=== PATIENT | female | born 1965 | race Caucasian/White ===

== ENCOUNTER 2016-11-06 16:14 | Emergency (ER) | payer SELFPAY ==
[~2016-11-06] VITALS: Ht 170.2 cm; Wt 70.4 kg
[~2016-11-06 16:14] MED LIST: CENTURY SENIOR1 EAC2 PO; FLEXERIL10 MG PO; KEFLEX500 MG PO; METFORMIN HCL500 MG PO; MOTRIN600 MG PO; NAPROSYN500 MG PO
[2016-11-06] MEDS ORDERED: LISINOPRIL10 MG PO (17:46)
[2016-11-06 18:07] LABS: ADD MIUA? YES; BILIRUBIN NEGATIVE; BLOOD NEGATIVE; COLOR YELLOW ((YELLOW)); GLUCOSE (STRIP) >=1000; KETONES NEGATIVE; LEUKOCYTES TRACE; NITRITE POSITIVE; PROTEIN (STRIP) NEGATIVE; SPECIFIC GRAVITY 1.007 (1.000-1.030); UROBILINOGEN 0.2 MG/DL (0.2-1.0)
[2016-11-06 18:15] LABS: HEMATOCRIT 41.3 % (36.0-46.0); MCH 29.7 PG (29.0-34.0); MCHC 33.7 G/DL (30.0-36.0); MCV 88.2 FL (83-99); MEAN PLAT.VOLUME 9.3 uM^3 (9.5-12.4); PLATELET COUNT 254 K/uL (156-360); RBC DIS.WIDTH-CV 12.8 % (11.8-14.6); RBC DIS.WIDTH-SD 40.8 % (39-53); RED BLOOD COUNT 4.68 M/uL (3.80-5.20); WHITE BLOOD COUNT 9.9 K/uL (4.1-10.2)
[2016-11-06 18:23] LABS: CHLORIDE 100 mEq/L (99-109); POTASSIUM 3.7 mEq/L (3.7-5.4); SODIUM 135 mEq/L (136-147)
[2016-11-06 18:25] LABS: GLUCOSE 259 mg/dL (70-99)
[2016-11-06 18:26] LABS: ANION GAP 15 MEQ/L (2-14)
[2016-11-06 18:29] LABS: GFR ESTIMATE (CALCULATED) 55 mL/min/
[2016-11-06 18:30] LABS: UREA NITROGEN (BUN) 12 mg/dL (9-23)
[2016-11-06 18:56] LABS: BACTERIA 2+; CASTS NONE SEEN /LPF; CRYSTALS NONE SEEN; EPITHELIAL CELLS 2+; MUCUS TRACE; RED BLOOD CELLS RARE /HPF (0-5)
[2016-11-06] MEDS ORDERED: MUCINEX D ER T1 EACH PO (19:48)
[2016-11-06] MEDS ORDERED: ANTIVERT25 MG PO (19:48)
[2016-11-06] MEDS ORDERED: FLONASE16 G1 BOTH NARES (19:52)
[2016-11-06] MEDS ORDERED: LEVAQUIN500 MG PO (19:52)
[2016-11-06 20:12] VITALS: BP 122/95
== END 2016-11-06 20:15 | disposition home or self-care (01) ==
LOC: EME 16:14
PROVIDERS: Physician Assistant
DX: J32.9 Chronic sinusitis, unspecified (principal); N39.0 Urinary tract infection, site not specified; H65.90 Unspecified nonsuppurative otitis media, unspecified ear; E11.65 Type 2 diabetes mellitus with hyperglycemia; Z79.84 Long term (current) use of oral hypoglycemic drugs
CPT/HCPCS: 80048; 81003; 85027; 87077; 87086; 87186; 99281; 99284

== ENCOUNTER 2017-07-13 02:35 | Inpatient (IN) | payer SELFPAY ==
[~2017-07-13] VITALS: Ht 170.2 cm; Wt 71.4 kg
[~2017-07-13 02:35] MED LIST changes: +ANTIVERT25 MG PO; +FLONASE16 G1 BOTH NARES; +LEVAQUIN500 MG PO; +LISINOPRIL10 MG PO; +MUCINEX D ER T1 EACH PO
[2017-07-13 05:09] LABS: ADD MIUA? YES; BILIRUBIN NEGATIVE; BLOOD NEGATIVE; COLOR YELLOW ((YELLOW)); GLUCOSE (STRIP) >=500; KETONES NEGATIVE; LEUKOCYTES MODERATE; NITRITE NEGATIVE; PROTEIN (STRIP) NEGATIVE; SPECIFIC GRAVITY 1.011 (1.000-1.030); UROBILINOGEN 0.2 MG/DL (0.2-1.0)
[2017-07-13 05:13] LABS: BACTERIA RARE /HPF; EPITHELIAL CELLS RARE /HPF; MUCUS NONE SEEN /LPF; RED BLOOD CELLS 0-5 /HPF (0-5); UCUL ADDED? YES; WHITE BLOOD CELLS TNTC /HPF (0-5)
[2017-07-13 05:40] LABS: CHLORIDE 105 mEq/L (99-109); POTASSIUM 3.3 mEq/L (3.7-5.4); SODIUM 139 mEq/L (136-147)
[2017-07-13 05:41] LABS: EOSINOPHIL (%) 0.7 % (0-5); EOSINOPHIL COUNT 0.1 K/uL (0-0.3); HEMATOCRIT 38.6 % (36.0-46.0); IMMATURE GRANULOCYTE (%) 0.6 % (0.0-0.7); IMMATURE GRANULOCYTE COUNT 0.1 K/uL; LYMPHOCYTE COUNT 1.7 K/uL (1.0-2.8); MCH 29.3 PG (29.0-34.0); MCHC 33.7 G/DL (30.0-36.0); MCV 87.1 FL (83-99); MEAN PLAT.VOLUME 9.2 uM^3 (9.5-12.4); MONOCYTE (%) 5.8 % (3-12); MONOCYTE COUNT 0.9 K/uL (0-0.8); NEUTROPHIL (%) 81.5 % (45-76); PLATELET COUNT 257 K/uL (156-360); RBC DIS.WIDTH-CV 12.6 % (11.8-14.6); RED BLOOD COUNT 4.43 M/uL (3.80-5.20); WHITE BLOOD COUNT 14.7 K/uL (4.1-10.2)
[2017-07-13 05:42] LABS: GLUCOSE 273 mg/dL (70-99)
[2017-07-13 05:44] LABS: ANION GAP 13 MEQ/L (2-14); TOTAL BILIRUBIN 0.5 mg/dL (0.0-1.0)
[2017-07-13 05:46] LABS: ALKALINE PHOSPHATASE 86 IU/L (3-129); GFR ESTIMATE (CALCULATED) > 59 mL/min/
[2017-07-13 05:47] LABS: UREA NITROGEN (BUN) 11 mg/dL (9-23)
[2017-07-13] MEDS ORDERED: [UNRECOGNIZED DRUG - OTHER] PO (09:01)
[2017-07-13 11:13] LABS: INFLUENZA A VIRAL ANTIGEN NEGATIVE; INFLUENZA B VIRAL ANTIGEN NEGATIVE
[2017-07-13 13:42] VITALS: BP 118/81
[2017-07-13 16:04] LABS: POINT-OF-CARE METER ID UU14314084
[2017-07-13 19:51] VITALS: BP 124/60
[2017-07-13 22:48] LABS: POINT-OF-CARE METER ID UU14314084
[2017-07-13 23:15] VITALS: BP 123/65
[2017-07-14 03:34] VITALS: BP 145/70
[2017-07-14 05:54] LABS: POINT-OF-CARE METER ID UU14314084
[2017-07-14 07:22] VITALS: BP 125/68
[2017-07-14 11:02] LABS: POINT-OF-CARE METER ID UU14314084
[2017-07-14 11:09] LABS: MCH 31.3 PG (29.0-34.0); MCHC 34.4 G/DL (30.0-36.0); MCV 90.9 FL (83-99); MEAN PLAT.VOLUME 9.5 uM^3 (9.5-12.4); PLATELET COUNT 198 K/uL (156-360); RBC DIS.WIDTH-CV 13.2 % (11.8-14.6); RBC DIS.WIDTH-SD 43.7 % (39-53)
[2017-07-14 11:11] LABS: RED BLOOD COUNT 3.52 M/uL (3.80-5.20)
[2017-07-14 11:31] LABS: ANION GAP 9 MEQ/L (2-14); CHLORIDE 108 MEQ/L (99-109); GFR ESTIMATE (CALCULATED) > 59 mL/min/; GLUCOSE 283 mg/dL (70-99); POTASSIUM 3.5 MEQ/L (3.7-5.4); SAMPLE HEMOLYSIS CHECK 0; SAMPLE ICTERIC CHECK 0; SAMPLE LIPEMIA CHECK 0; SODIUM 140 MEQ/L (136-147); UREA NITROGEN (BUN) 8 mg/dL (9-23)
[2017-07-14 11:40] VITALS: BP 161/88
[2017-07-14 11:45] LABS: Estimated Average Glucose 278 mg/dL (70-123); HEMOGLOBIN A1c (GLYCOHEMOGLOB) 11.3 % HGB (Below 5.7)
[2017-07-14 16:42] LABS: POINT-OF-CARE METER ID UU14314084
[2017-07-14 19:35] VITALS: BP 145/78
[2017-07-14 22:13] LABS: POINT-OF-CARE METER ID UU14208750
[2017-07-15 00:18] VITALS: BP 133/78
[2017-07-15 04:20] VITALS: BP 159/85
[2017-07-15 07:10] LABS: POINT-OF-CARE METER ID UU14314084
[2017-07-15] MEDS ORDERED: LISINOPRIL10 MG PO (11:00)
[2017-07-15] MEDS ORDERED: CEFDINIR300 MG PO (11:00)
[2017-07-15] MEDS ORDERED: GLIPIZIDE5 MG PO (11:00)
[2017-07-15] MEDS ORDERED: THERAGRAN1 TABLET PO (11:00)
[2017-07-15 12:00] LABS: POINT-OF-CARE METER ID UU14314084
[2017-07-15] MEDS ORDERED: GLUCOMETER MC (13:04)
[2017-07-15] MEDS ORDERED: FORA V10-V12-D1 EACH MC (13:04)
[2017-07-15] MEDS ORDERED: RELION CONFIRM MC (13:31)
[2017-07-15 13:44] VITALS: BP 179/93
[2017-07-15 15:51] VITALS: BP 156/94
[2017-07-15 15:55] LABS: POINT-OF-CARE METER ID UU14314084
== END 2017-07-15 17:52 | disposition home or self-care (01) | DRG 872 ==
LOC: EME 02:35 → 2EAST 07:33 → EDOF 07:33 → ENRESERV 07:35 → 2EAST 13:36
PROVIDERS: Emergency Medicine; Hospitalist
DX: A41.9 Sepsis, unspecified organism (principal); E87.2 Acidosis; N39.0 Urinary tract infection, site not specified; E11.65 Type 2 diabetes mellitus with hyperglycemia; Z79.84 Long term (current) use of oral hypoglycemic drugs; Z80.9 Family history of malignant neoplasm, unspecified; B96.89 Other specified bacterial agents as the cause of diseases classified elsewhere; I10 Essential (primary) hypertension; Z88.8 Allergy status to other drugs, medicaments and biological substances; T38.3X5A Adverse effect of insulin and oral hypoglycemic [antidiabetic] drugs, initial encounter
CPT/HCPCS: 70450; 71020; 80048; 80053; 81003; 82948; 83036; 83605; 85025; 85027; 87040; 87077; 87086; 87186; 87502; 93005; 94760; 99202; 99281; 99285; J0456; J0696; J1650; J1815; J7030; J7050

== ENCOUNTER 2017-07-20 23:34 | Observation (INO) | payer SELFPAY ==
[~2017-07-20] VITALS: Ht 170.2 cm; Wt 86.9 kg
[~2017-07-20 23:34] MED LIST changes: +CEFDINIR300 MG PO; +FORA V10-V12-D1 EACH MC; +GLIPIZIDE5 MG PO; +GLUCOMETER MC; +RELION CONFIRM MC; +THERAGRAN1 TABLET PO; +[UNRECOGNIZED DRUG - OTHER] PO
[2017-07-21 00:09] LABS: HEMATOCRIT 39.3 % (36.0-46.0); MCH 30.6 PG (29.0-34.0); MCHC 34.1 G/DL (30.0-36.0); MCV 89.7 FL (83-99); MEAN PLAT.VOLUME 9.1 uM^3 (9.5-12.4); PLATELET COUNT 404 K/uL (156-360); RBC DIS.WIDTH-CV 12.8 % (11.8-14.6); RBC DIS.WIDTH-SD 41.9 % (39-53); RED BLOOD COUNT 4.38 M/uL (3.80-5.20)
[2017-07-21 00:16] LABS: CHLORIDE 106 mEq/L (99-109); POTASSIUM 3.3 mEq/L (3.7-5.4); SODIUM 141 mEq/L (136-147)
[2017-07-21 00:18] LABS: GLUCOSE 145 mg/dL (70-99)
[2017-07-21 00:19] LABS: ANION GAP 14 MEQ/L (2-14)
[2017-07-21 00:20] LABS: TOTAL BILIRUBIN 0.4 mg/dL (0.0-1.0)
[2017-07-21 00:21] LABS: ALKALINE PHOSPHATASE 85 IU/L (3-129)
[2017-07-21 00:22] LABS: GFR ESTIMATE (CALCULATED) 55 mL/min/
[2017-07-21 00:23] LABS: UREA NITROGEN (BUN) 12 mg/dL (9-23)
[2017-07-21 00:32] LABS: QUANTITATIVE HCG < 4.0 MIU/ML
[2017-07-21 01:52] LABS: INTERNAL CONTROL VALID? YES
[2017-07-21 01:53] LABS: LIPASE 46 U/L (1.0-51.0)
[2017-07-21 02:25] LABS: C DIFF TOXIN NEGATIVE (NEGATIVE)
[2017-07-21 02:33] LABS: PROBE CHECK PASS; SPECIMEN PROCESSING CONTROL PASS
[2017-07-21 03:01] LABS: ADD MIUA? YES; BILIRUBIN NEGATIVE; BLOOD MODERATE; COLOR YELLOW ((YELLOW)); GLUCOSE (STRIP) NEGATIVE; KETONES NEGATIVE; LEUKOCYTES LARGE; NITRITE NEGATIVE; PROTEIN (STRIP) 30; SPECIFIC GRAVITY 1.012 (1.000-1.030); UROBILINOGEN 0.2 MG/DL (0.2-1.0)
[2017-07-21 03:16] LABS: EPITHELIAL CELLS 3+ /HPF; MUCUS RARE /LPF; RED BLOOD CELLS 0-5 /HPF (0-5)
[2017-07-21 03:17] LABS: BACTERIA 2+ /HPF; CASTS NONE SEEN /LPF; CRYSTALS NONE SEEN; UCUL ADDED? YES
[2017-07-21 06:11] VITALS: BP 144/81
[2017-07-21 07:17] VITALS: BP 97/62
[2017-07-21 07:47] LABS: POINT-OF-CARE METER ID UU14314084; POINT-OF-CARE USER ID STWLMB34
[2017-07-21 11:21] LABS: POINT-OF-CARE METER ID UU14314084
[2017-07-21 11:44] VITALS: BP 105/63
[2017-07-21] MEDS ORDERED: GLUCOTROL5 MG PO (14:48)
[2017-07-21 15:39] VITALS: BP 132/84
[2017-07-21 17:01] LABS: POINT-OF-CARE METER ID UU14314084; POINT-OF-CARE USER ID STWLMB34
[2017-07-21 19:18] VITALS: BP 136/84
[2017-07-21 21:11] LABS: POINT-OF-CARE METER ID UU14314084
[2017-07-21 23:31] VITALS: BP 119/72
[2017-07-22 03:33] VITALS: BP 109/59
[2017-07-22 07:08] VITALS: BP 120/76
[2017-07-22 08:03] LABS: POINT-OF-CARE METER ID UU14314084
[2017-07-22 08:24] LABS: ANION GAP 8 MEQ/L (2-14); CHLORIDE 109 MEQ/L (99-109); GFR ESTIMATE (CALCULATED) > 59 mL/min/; GLUCOSE 111 mg/dL (70-99); SAMPLE HEMOLYSIS CHECK 0; SAMPLE ICTERIC CHECK 0; SAMPLE LIPEMIA CHECK 0; SODIUM 140 MEQ/L (136-147); UREA NITROGEN (BUN) 9 mg/dL (9-23)
[2017-07-22 08:25] LABS: MCH 31.2 PG (29.0-34.0); MCHC 33.6 G/DL (30.0-36.0); MCV 92.7 FL (83-99); MEAN PLAT.VOLUME 9.4 uM^3 (9.5-12.4); PLATELET COUNT 318 K/uL (156-360); RBC DIS.WIDTH-CV 13.2 % (11.8-14.6); RBC DIS.WIDTH-SD 44.6 % (39-53); RED BLOOD COUNT 3.56 M/uL (3.80-5.20); WHITE BLOOD COUNT 6.4 K/uL (4.1-10.2)
[2017-07-22] MEDS ORDERED: BACTRIM,SEPT1 TABLET PO (12:05)
[2017-07-22 12:07] LABS: POINT-OF-CARE METER ID UU14314084
== END 2017-07-22 12:41 | disposition home or self-care (01) ==
LOC: EME 23:34 → 2EASTP 07-21 04:41 → EDOF 07-21 04:41 → 2EASTP 07-21 04:41 → ENRESERV 07-21 04:43 → 2EASTP 07-21 05:58
PROVIDERS: Emergency Medicine; Hospitalist
DX: N39.0 Urinary tract infection, site not specified (principal); I10 Essential (primary) hypertension; E11.9 Type 2 diabetes mellitus without complications; E87.8 Other disorders of electrolyte and fluid balance, not elsewhere classified; K80.20 Calculus of gallbladder without cholecystitis without obstruction; K76.0 Fatty (change of) liver, not elsewhere classified; E87.6 Hypokalemia; E86.0 Dehydration; R91.8 Other nonspecific abnormal finding of lung field; Z79.84 Long term (current) use of oral hypoglycemic drugs; Z80.9 Family history of malignant neoplasm, unspecified; Z83.79 Family history of other diseases of the digestive system; Z88.8 Allergy status to other drugs, medicaments and biological substances
CPT/HCPCS: 74177; 76705; 80048; 80053; 81003; 82140; 82948; 83605; 83630; 83690; 84702; 85027; 87040; 87086; 87493; 99281; 99285; G0378; J0295; J0692; J1644; J1815; J2765; J7030; J7050; S0028

== ENCOUNTER 2017-12-05 13:35 | Emergency (ER) | payer SELFPAY ==
[~2017-12-05] VITALS: Ht 170.2 cm; Wt 70.2 kg
[~2017-12-05 13:35] MED LIST changes: +BACTRIM,SEPT1 TABLET PO; +GLUCOTROL5 MG PO
[2017-12-05] MEDS ORDERED: MOTRIN600 MG PO (17:04)
[2017-12-05 17:06] VITALS: BP 138/88
== END 2017-12-05 17:13 | disposition home or self-care (01) ==
LOC: EME 13:35
DX: R51 Headache (principal); I10 Essential (primary) hypertension; E11.9 Type 2 diabetes mellitus without complications; Z79.84 Long term (current) use of oral hypoglycemic drugs
CPT/HCPCS: 99281; 99284; J0780; J1885; J7030

== ENCOUNTER 2018-05-10 18:13 | Emergency (ER) | payer SELFPAY ==
[~2018-05-10] VITALS: Ht 170.2 cm; Wt 68.1 kg
[2018-05-10 19:30] LABS: HEMATOCRIT 39.6 % (36.0-46.0); MCH 30.2 PG (29.0-34.0); MCHC 35.4 G/DL (30.0-36.0); MCV 85.3 FL (83-99); PLATELET COUNT 276 K/uL (156-360); RBC DIS.WIDTH-CV 12.8 % (11.8-14.6); RBC DIS.WIDTH-SD 39.2 % (39-53); RED BLOOD COUNT 4.64 M/uL (3.80-5.20); WHITE BLOOD COUNT 9.3 K/uL (4.1-10.2)
[2018-05-10 19:39] LABS: CHLORIDE 101 mEq/L (99-109); POTASSIUM 4.3 mEq/L (3.7-5.4); SODIUM 136 mEq/L (136-147)
[2018-05-10 19:41] LABS: GLUCOSE 242 mg/dL (70-99)
[2018-05-10 19:45] LABS: CREATININE 1.2 mg/dL (0.6-1.3); GFR ESTIMATE (CALCULATED) 50 mL/min/
[2018-05-10 19:46] LABS: UREA NITROGEN (BUN) 10 mg/dL (9-23)
[2018-05-10 19:56] LABS: QUANTITATIVE HCG < 4.0 MIU/ML
[2018-05-10 21:15] LABS: APPEARANCE CLOUDY ((CLEAR)); BILIRUBIN NEGATIVE; BLOOD LARGE; COLOR YELLOW ((YELLOW)); GLUCOSE (STRIP) 50; KETONES 5; LEUKOCYTES MODERATE; NITRITE NEGATIVE; PROTEIN (STRIP) 30; SPECIFIC GRAVITY 1.009 (1.000-1.030); UROBILINOGEN 0.2 MG/DL (0.2-1.0)
[2018-05-10 21:29] LABS: BACTERIA 3+ /HPF; EPITHELIAL CELLS 3+ /HPF; MUCUS NONE SEEN /LPF; RED BLOOD CELLS TNTC /HPF (0-5); UCUL ADDED? YES; WHITE BLOOD CELLS TNTC /HPF (0-5)
[2018-05-10 21:37] LABS: CARBON DIOXIDE (BICARBONATE) 23.9 MEQ/L (20-31)
[2018-05-10 23:00] LABS: CHLORIDE 105 mEq/L (99-109); POTASSIUM 3.8 mEq/L (3.7-5.4); SODIUM 141 mEq/L (136-147)
[2018-05-10 23:01] LABS: GLUCOSE 223 mg/dL (70-99)
[2018-05-10 23:05] LABS: CREATININE 1.1 mg/dL (0.6-1.3); GFR ESTIMATE (CALCULATED) 55 mL/min/
[2018-05-10 23:06] LABS: UREA NITROGEN (BUN) 10 mg/dL (9-23)
[2018-05-10] MEDS ORDERED: METFORMIN HCL500 MG PO (23:33)
[2018-05-10] MEDS ORDERED: WOMEN'S DAILY1 EAC4 PO (23:33)
[2018-05-10] MEDS ORDERED: NORCO 5/3251 TABLET PO (23:43)
[2018-05-10] MEDS ORDERED: CIPRO500 MG PO (23:43)
[2018-05-10] MEDS ORDERED: GLUCOPHAGE500 MG PO (23:43)
[2018-05-11 00:14] VITALS: BP 139/97
== END 2018-05-11 00:15 | disposition home or self-care (01) ==
LOC: EME 18:13
PROVIDERS: Physician Assistant
DX: N10 Acute pyelonephritis (principal); E11.65 Type 2 diabetes mellitus with hyperglycemia; Z91.14 Patient's other noncompliance with medication regimen; K80.20 Calculus of gallbladder without cholecystitis without obstruction; Z88.8 Allergy status to other drugs, medicaments and biological substances
CPT/HCPCS: 71046; 74176; 80048; 80048 91; 81003; 82010; 82803; 84702; 85027; 87040; 87077; 87086; 87186; 99281; 99285; J0696; J2405; J3010; J7030

== ENCOUNTER 2018-06-05 12:58 | Emergency (ER) | payer SELFPAY ==
[~2018-06-05] VITALS: Ht 170.2 cm; Wt 68.2 kg
[~2018-06-05 12:58] MED LIST changes: +CIPRO500 MG PO; +GLUCOPHAGE500 MG PO; +NORCO 5/3251 TABLET PO; +WOMEN'S DAILY1 EAC4 PO
[2018-06-05] MEDS ORDERED: MOTRIN600 MG PO (15:19)
[2018-06-05 15:37] VITALS: BP 146/99
== END 2018-06-05 15:37 | disposition home or self-care (01) ==
LOC: EME 12:58
DX: S83.92XA Sprain of unspecified site of left knee, initial encounter (principal); X50.1XXA Overexertion from prolonged static or awkward postures, initial encounter; R60.0 Localized edema
CPT/HCPCS: 73564; 99281; 99283